=== PATIENT | female | born 1955 | race Caucasian/White ===

== ENCOUNTER 2017-07-05 21:51 | Emergency (ER) | payer OTHER ==
[2015-05-06 10:49] VITALS: BMI 24.8
[~2017-07-05 21:51] MED LIST: AMBIEN10 MG PO; ATIVAN2 MG PO; BACTRIM DS TABL1 TAB PO; CELEXA40 MG PO; CIPRO500 MG PO; PERCOCET 10/3251 TA1 PO; PHENAZOPYRIDIN200 MG PO; PRADAXA150 MG PO; ZOFRAN4 MG PO
== END 2017-07-06 00:16 | disposition home or self-care (01) ==
LOC: D.ER 21:51
DX: F41.9 Anxiety disorder, unspecified (principal); F13.239 Sedative, hypnotic or anxiolytic dependence with withdrawal, unspecified; Z86.73 Personal history of transient ischemic attack (TIA), and cerebral infarction without residual deficits

== ENCOUNTER → 2018-12-24 15:04 | Outpatient (CLI) | payer OTHER ==
[2015-05-06 10:49] VITALS: BMI 24.8
== END | disposition home or self-care (01) ==
LOC: D.RAD 15:04
PROVIDERS: ATTEND Emergency Medicine
DX: R10.9 Unspecified abdominal pain (principal); R19.7 Diarrhea, unspecified